=== PATIENT | male | born 1955 | race Two or more races ===

== ENCOUNTER 2024-10-29 07:46 | Outpatient (CLI) | payer MEDICAID ==
[2024-10-29 08:05] LABS: Hematocrit 45.7 % (41.0-53.0); Hemoglobin 15.3 g/dL (13.5-17.5); Mean Corpuscular Hemoglobin 30.1 pg (28.0-32.0); Mean Corpuscular Volume 89.9 fL (80.0-100.0); Nucleated Red Blood Cells % 0.1 %
[2024-10-29 08:15] LABS: Urine Protein, UAD Negative (Negative)
[2024-10-29 08:41] LABS: Carbon Dioxide 25 mmol/L (20-31)
[2024-10-29 08:45] LABS: Uric Acid 4.3 mg/dL (3.7-9.2)
[2024-10-29 08:46] LABS: Alkaline Phosphatase 92 U/L (46-116); BUN/Creatinine Ratio 20.2 (10.0-20.0)
[2024-10-29 08:47] LABS: Alanine Aminotransferase 26 U/L (7-40); Magnesium 1.8 mg/dL (1.6-2.6); Total Protein 6.6 g/dL (5.7-8.2)
[2024-10-29 08:48] LABS: Albumin 4.0 g/dL (3.2-4.8); Bilirubin, Total 0.4 mg/dL (0.2-1.0)
[2024-10-29 08:56] LABS: Anion Gap 12 (5-15); Blood Urea Nitrogen 25 mg/dL (9-23); Calcium 8.4 mg/dL (8.7-10.4); Chloride 106 mmol/L (98-107); Glucose 127 mg/dL (74-106); Potassium 4.0 mmol/L (3.5-5.1); Sodium 143 mmol/L (136-145)
[2024-10-29 10:22] LABS: Triglycerides 118 mg/dL (< 150)
[2024-10-29 10:25] LABS: Cholesterol 228 mg/dL (< 200); HDL Cholesterol 69 mg/dL (40-59)
== END 2024-10-29 17:00 | disposition home or self-care (01) ==
LOC: LAB 07:46
PROVIDERS: ATTEND Internal Medicine
DX: E11.9 Type 2 diabetes mellitus without complications (principal); E78.49 Other hyperlipidemia; E61.2 Magnesium deficiency; E79.0 Hyperuricemia without signs of inflammatory arthritis and tophaceous disease; E55.9 Vitamin D deficiency, unspecified; D51.9 Vitamin B12 deficiency anemia, unspecified; R82.79 Other abnormal findings on microbiological examination of urine; R82.90 Unspecified abnormal findings in urine; R82.998 Other abnormal findings in urine; R94.6 Abnormal results of thyroid function studies; R68.89 Other general symptoms and signs
CPT/HCPCS: 36415; 80053; 80061; 81001; 82306; 82607; 82746; 83036; 83735; 84443; 84480; 84550; 85025; 87086

== ENCOUNTER 2024-12-05 07:51 | Outpatient (CLI) | payer MEDICAID ==
[2024-12-05 08:55] LABS: Hematocrit 47.3 % (41.0-53.0); Hemoglobin 15.8 g/dL (13.5-17.5); Mean Corpuscular Hemoglobin 30.2 pg (28.0-32.0); Mean Corpuscular Volume 90.6 fL (80.0-100.0); Nucleated Red Blood Cells % 0.1 %
[2024-12-05 09:14] LABS: Anion Gap 8 (5-15); Calcium 9.1 mg/dL (8.7-10.4); Carbon Dioxide 29 mmol/L (20-31); Chloride 104 mmol/L (98-107); Potassium 4.9 mmol/L (3.5-5.1); Sodium 141 mmol/L (136-145)
[2024-12-05 09:20] LABS: BUN/Creatinine Ratio 14.6 (10.0-20.0); Blood Urea Nitrogen 14 mg/dL (9-23); Glucose 139 mg/dL (74-106); Triglycerides 93 mg/dL (< 150)
[2024-12-05 09:22] LABS: Bilirubin, Direct 0.2 mg/dL (<0.3); Cholesterol 176 mg/dL (< 200)
[2024-12-05 09:23] LABS: HDL Cholesterol 66 mg/dL (40-59)
== END 2024-12-05 17:00 | disposition home or self-care (01) ==
LOC: LAB 07:51
PROVIDERS: ATTEND Specialist
DX: I11.0 Hypertensive heart disease with heart failure (principal); I50.9 Heart failure, unspecified; E11.9 Type 2 diabetes mellitus without complications; E78.5 Hyperlipidemia, unspecified; E03.9 Hypothyroidism, unspecified; D64.9 Anemia, unspecified; R68.89 Other general symptoms and signs
CPT/HCPCS: 36415; 80048; 80061; 82248; 83036; 84443; 85025

== ENCOUNTER 2025-01-07 08:27 | Outpatient (CLI) | payer MEDICAID | END 2025-01-07 17:00 | disposition home or self-care (01) | LOC: LAB 08:27 | PROVIDERS: ATTEND Internal Medicine | DX: E78.49 Other hyperlipidemia (principal); E61.2 Magnesium deficiency; E79.0 Hyperuricemia without signs of inflammatory arthritis and tophaceous disease; E55.9 Vitamin D deficiency, unspecified; D51.9 Vitamin B12 deficiency anemia, unspecified; R82.79 Other abnormal findings on microbiological examination of urine; R82.998 Other abnormal findings in urine; R82.90 Unspecified abnormal findings in urine; R94.6 Abnormal results of thyroid function studies; R68.89 Other general symptoms and signs; R73.09 Other abnormal glucose | CPT/HCPCS: 82306; 87086 ==